=== PATIENT | female | born 1975 ===

== ENCOUNTER 2025-04-21 08:40 | Outpatient (CLI) | payer OTHER | END 2025-04-21 09:00 | disposition home or self-care (01) | LOC: TOM 08:40 | PROVIDERS: ATTEND Internal Medicine | DX: K57.92 Diverticulitis of intestine, part unspecified, without perforation or abscess without bleeding (principal); M48.00 Spinal stenosis, site unspecified; M48.062 Spinal stenosis, lumbar region with neurogenic claudication | CPT/HCPCS: 72148 ==